=== PATIENT | female | born 1985 | race Hispanic/Latino ===

== ENCOUNTER 2021-01-22 20:44 | Inpatient (IN) | payer OTHER, MEDICARE ==
[~2021-01-22] VITALS: Ht 157.5 cm; Wt 91.9 kg
[2021-01-22] MEDS ORDERED: 0.9%NACL 1000ML 1,000 ML IV ONE ×2 (21:30→23:00)
[2021-01-22] MEDS ORDERED: LEVETIRACETAM 1,500 MG in 0.9%NACL 100ML 100 ML IV ONE (22:00)
[2021-01-22] MEDS ORDERED: ONDANSETRON 4MG INJ IVP ONE (22:00)
[2021-01-22] MEDS ORDERED: COMPOUND IV MISC 1 EACH IVSOLN MISC PRN (22:00)
[2021-01-22 22:07] LABS: BASOPHILS % (AUTO) 0.2 % (0.0-5.0); EOSINOPHILS % (AUTO) 0.3 % (0.0-8.0); HEMATOCRIT 50.9 % (36-48); LYMPHOCYTES % (AUTO) 15.8 % (21.0-51.0); MEAN CORPUSCULAR HEMOGLOBIN 28.3 pg (27.0-33.0); MEAN CORPUSCULAR HGB CONC 33.6 g/dL (32.0-36.0); MEAN CORPUSCULAR VOLUME 84.3 fL (79-99); MONOCYTES % (AUTO) 6.8 % (3.0-13.0); NEUTROPHILS % (AUTO) 76.4 % (40.0-77.0); PLATELET COUNT (AUTO) 333 K/uL (130-400); RED BLOOD CELL COUNT(AUTO) 6.04 MIL/uL (4.00-5.50); RED CELL DISTRIBUTION WIDTH 13.1 % (11.0-15.5)
[2021-01-22 22:19] LABS: CREATININE 0.6 mg/dL (0.5-1.5); POTASSIUM 3.9 mmol/L (3.5-5.1)
[2021-01-22] MEDS ORDERED: ZOSYN 3.375GM +NS 50ML IV ONE (22:30)
[2021-01-22 22:35] LABS: ALBUMIN 3.7 g/dL (3.5-5.0); BILIRUBIN,TOTAL 0.5 mg/dL (0.2-1.0); MAGNESIUM 2.5 mg/dL (1.80-2.40); TOTAL PROTEIN, SERUM 8.1 g/dL (6.0-8.3)
[2021-01-22 22:44] LABS: APPEARANCE,URINE Turbid (CLEAR); BILIRUBIN,URINE Negative (NEGATIVE); COLOR,URINE Yellow (YELLOW); GLUCOSE, URINE (UA) >=1000 mg/dL (NEGATIVE); KETONES,URINE 15 mg/dL (NEGATIVE); LEUKOCYTE ESTERASE ,URINE Moderate (NEGATIVE); NITRATE,URINE Negative (NEGATIVE); OCCULT BLOOD,URINE Moderate (NEGATIVE); PROTEIN,URINE POS 1+ mg/dL (NEGATIVE)
[2021-01-22 22:52] LABS: AMPHET/METH SCREEN,URINE NEGATIVE (NEGATIVE); BARBITURATE SCREEN, URINE NEGATIVE (NEGATIVE); BENZODIAZEPINES SCREEN,URINE NEGATIVE (NEGATIVE); CANNABINOID SCREEN,URINE NEGATIVE (NEGATIVE); COCAINE SCREEN,URINE NEGATIVE (NEGATIVE); OPIATE SCREEN,URINE NEGATIVE (NEGATIVE); PHENCYCLIDINE SCREEN,URINE NEGATIVE (NEGATIVE)
[2021-01-22 22:57] LABS: WBC,URINE TNTC /HPF (0-1)
[2021-01-22 22:58] LABS: BACTERIA,URINE Few /HPF (None Seen); SQUAMOUS EPITHELIAL CELL,UR 0-2 /HPF (0-2); YEAST,URINE BUDDING Moderate /HPF (None Seen)
[2021-01-22] MEDS ORDERED: KETOROLAC 30MG VIAL (30MG/ML) IV ONE (23:00)
[2021-01-22] MEDS ORDERED: METOCLOPRAMIDE 10 MG/2 ML VIAL IVP ONE (23:00)
[2021-01-22] MEDS ORDERED: DiphenhydrAMINE HCL 50 MG/ML VIAL IV ONE (23:00)
[2021-01-22 23:10] LABS: ABG BASE EXCESS 0.6 mmol/L (-2.0-3.0); ABG HCO3 23.5 mmol/L (21.0-28.0); ABG OXYGEN SATURATION 96.6 % (95.0-99.0); ABG PCO2 33 mmHg (32-45)
[2021-01-22] MEDS ORDERED: ATOR10 PO (23:29)
[2021-01-22] MEDS ORDERED: METO25TA6 PO (23:29)
[2021-01-22] MEDS ORDERED: NAPR-1023 PO (23:40)
[2021-01-22] MEDS ORDERED: MULT-1193 PO (23:40)
[2021-01-22] MEDS ORDERED: LEVE500T98 PO (23:40)
[2021-01-22] MEDS ORDERED: BACL10TA PO (23:40)
[2021-01-23] VITALS (22 sets, daily range): BP systolic 118–157; BP diastolic 74–101
[2021-01-23] MEDS ORDERED: CEFTRIAXONE 1G VIAL IV SCH (01:30)
[2021-01-23] MEDS ORDERED: ONDANSETRON 4MG INJ IV PRN (01:30)
[2021-01-23] MEDS: LACTATED RINGERS 1000ML 1,000 ML IV SCH ×3 (01:31→21:30)
[2021-01-23] MEDS ORDERED: MORPHINE 2 MG SYG ONE (03:26)
[2021-01-23] MEDS ORDERED: MORPHINE 2 MG SYG IM ONE (04:00)
[2021-01-23 05:44] LABS: CREATININE 0.6 mg/dL (0.5-1.5); MAGNESIUM 2.3 mg/dL (1.80-2.40); PHOSPHORUS 3.6 mg/dL (2.5-4.9)
[2021-01-23 05:49] LABS: HEMOGLOBIN A1C 7.3 % (4.0-6.0)
[2021-01-23] MEDS ORDERED: DEXAMETHASONE SOD PHOSPHATE 10MG/ML 1ML VIAL ONE ×2 (07:14→14:42)
[2021-01-23] MEDS ORDERED: SUCCINYLCHOLINE CHLORIDE 20 MG/ML 10 ML VIAL ONE (07:14)
[2021-01-23] MEDS ORDERED: LIDOCAINE PF 100MG/5ML (2%) SYRINGE 5ML ONE ×2 (07:14→14:42)
[2021-01-23] MEDS ORDERED: ONDANSETRON 4MG INJ ONE ×2 (07:14→14:43)
[2021-01-23] MEDS ORDERED: NEOSTIGMINE 5MG/5ML SYR IV ONE ×2 (07:15→14:43)
[2021-01-23] MEDS ORDERED: PROPOFOL 10 MG/ML 20ML VIAL IV ONE ×2 (07:15→14:43)
[2021-01-23] MEDS ORDERED: FENTANYL CITRATE PF 50 MCG/1 ML 2ML VIAL ONE (07:15)
[2021-01-23] MEDS ORDERED: GLYCOPYRROLATE 1 MG/5 ML SYRINGE ONE ×2 (07:15→14:43)
[2021-01-23] MEDS ORDERED: MIDAZOLAM HCL 1 MG/ML 2ML VIAL ONE ×2 (07:16→14:43)
[2021-01-23] MEDS ORDERED: ROCURONIUM 10MG/1ML SYR 10 MG/ML ML ONE ×2 (07:16→14:43)
[2021-01-23] MEDS: CEFTRIAXONE 2GM VIAL IVP SCH ×2 (09:16→21:03)
[2021-01-23] MEDS: FAMOTIDINE 20MG VIAL IV SCH ×2 (09:16→21:04)
[2021-01-23 09:19] LABS: APPEARANCE,CSF CLEAR (CLEAR); COLOR,CSF COLORLESS (COLORLESS); CSF TUBE NUMBER 1
[2021-01-23 09:20] LABS: RED BLOOD CELL1,CSF 10 CMM (0-0); WHITE BLOOD CELL1,CSF 0 CMM (0-5)
[2021-01-23 09:37] LABS: GLUCOSE, CSF 127 mg/dL (40-70); TOTAL PROTEIN, CSF 31 mg/dL (15-45)
[2021-01-23] MEDS ORDERED: 0.9%NACL 1000ML 1,000 ML IV ONE (13:20)
[2021-01-23] MEDS ORDERED: SUCCINYLCHOLINE 200MG/10ML SYR ONE (14:42)
[2021-01-23] MEDS ORDERED: FENTANYL CITRATE PF 50 MCG/1 ML 5ML AMP IV ONE (14:43)
[2021-01-23] MEDS ORDERED: MEPERIDINE-PF 25 MG/ML SYG ONE (14:44)
[2021-01-23] MEDS: CEFTRIAXONE 1G VIAL ONE ×2 (15:40→15:45)
[2021-01-23] MEDS ORDERED: MORPHINE 4 MG SYG IM PRN (17:30)
[2021-01-23] MEDS ORDERED: TRAMADOL HCL 50 MG TABLET PO PRN (17:30)
[2021-01-24 04:04] VITALS: BP 125/72
[2021-01-24 04:25] LABS: BASOPHILS % (AUTO) 0.1 % (0.0-5.0); HEMATOCRIT 44.5 % (36-48); LYMPHOCYTES % (AUTO) 12.2 % (21.0-51.0); MEAN CORPUSCULAR HEMOGLOBIN 28.3 pg (27.0-33.0); MEAN CORPUSCULAR HGB CONC 33.5 g/dL (32.0-36.0); MEAN CORPUSCULAR VOLUME 84.4 fL (79-99); MONOCYTES % (AUTO) 3.6 % (3.0-13.0); NEUTROPHILS % (AUTO) 83.5 % (40.0-77.0); PLATELET COUNT (AUTO) 311 K/uL (130-400); RED BLOOD CELL COUNT(AUTO) 5.27 MIL/uL (4.00-5.50); RED CELL DISTRIBUTION WIDTH 13.1 % (11.0-15.5)
[2021-01-24 04:40] LABS: INR 1.09 (0.85-1.15); PROTHROMBIN TIME 11.8 SEC (9.6-11.6)
[2021-01-24 04:41] LABS: PARTIAL THROMBOPLASTIN TIME 25.4 SEC (26.3-35.5)
[2021-01-24 07:30] VITALS: BP 129/75
[2021-01-24] MEDS: LACTATED RINGERS 1000ML 1,000 ML IV SCH ×2 (07:30→17:30)
[2021-01-24] MEDS: MULTIVITAMINS/MINERALS/IRO TAB PO SCH (08:58)
[2021-01-24] MEDS: CEFTRIAXONE 2GM VIAL IVP SCH ×2 (08:59→20:14)
[2021-01-24] MEDS: METOPROLOL TARTRATE 25 MG TAB PO SCH ×2 (08:59→20:14)
[2021-01-24] MEDS: LEVETIRACETAM 500 MG TABLET PO SCH ×2 (08:59→20:14)
[2021-01-24] MEDS: FAMOTIDINE 20MG VIAL IV SCH ×2 (08:59→20:14)
[2021-01-24 11:00] VITALS: BP 115/74
[2021-01-24 16:00] VITALS: BP 123/77
[2021-01-24 19:56] VITALS: BP 122/95
[2021-01-24] MEDS: ATORVASTATIN 10 MG TABLET PO SCH (20:14)
[2021-01-24 23:31] VITALS: BP 115/82
[2021-01-25] MEDS: LACTATED RINGERS 1000ML 1,000 ML IV SCH ×2 (03:30→13:30)
[2021-01-25 04:00] VITALS: BP 124/74
[2021-01-25 04:05] LABS: BASOPHILS % (AUTO) 0.3 % (0.0-5.0); EOSINOPHILS % (AUTO) 0.8 % (0.0-8.0); HEMATOCRIT 46.3 % (36-48); MEAN CORPUSCULAR HEMOGLOBIN 27.9 pg (27.0-33.0); MEAN CORPUSCULAR HGB CONC 32.6 g/dL (32.0-36.0); MEAN CORPUSCULAR VOLUME 85.4 fL (79-99); MONOCYTES % (AUTO) 8.7 % (3.0-13.0); NEUTROPHILS % (AUTO) 58.8 % (40.0-77.0); PLATELET COUNT (AUTO) 272 K/uL (130-400); RED BLOOD CELL COUNT(AUTO) 5.42 MIL/uL (4.00-5.50); RED CELL DISTRIBUTION WIDTH 13.3 % (11.0-15.5); WHITE BLOOD COUNT (AUTO) 12.5 K/uL (4.8-10.8)
[2021-01-25 04:25] LABS: CREATININE 0.5 mg/dL (0.5-1.5); CRP QUANTITATIVE 27.1 mg/L (0.00-9.0); POTASSIUM 3.3 mmol/L (3.5-5.1)
[2021-01-25 05:12] LABS: ERYTHROCYTE SEDIMENTATION RATE 34 MM/HR (0-20)
[2021-01-25 07:30] VITALS: BP 123/86
[2021-01-25] MEDS: MULTIVITAMINS/MINERALS/IRO TAB PO SCH (09:00)
[2021-01-25] MEDS ORDERED: KCL 20 MEQ ERTAB PO SCH (09:00)
[2021-01-25] MEDS: METOPROLOL TARTRATE 25 MG TAB PO SCH ×2 (09:13→19:51)
[2021-01-25] MEDS: LEVETIRACETAM 500 MG TABLET PO SCH ×2 (09:13→19:50)
[2021-01-25] MEDS: FAMOTIDINE 20MG VIAL IV SCH ×2 (09:14→19:52)
[2021-01-25] MEDS: CEFTRIAXONE 2GM VIAL IVP SCH ×2 (09:14→19:51)
[2021-01-25 11:00] VITALS: BP 136/63
[2021-01-25] MEDS ORDERED: FLUCONAZOLE 100 MG TAB PO SCH (15:00)
[2021-01-25 15:30] VITALS: BP 116/78
[2021-01-25 19:43] VITALS: BP 121/91
[2021-01-25] MEDS ORDERED: LABETALOL 20MG SYG IV ONE (19:48)
[2021-01-25 19:51] VITALS: BP 132/94
[2021-01-25] MEDS: ATORVASTATIN 10 MG TABLET PO SCH (19:51)
[2021-01-25] MEDS ORDERED: LABETALOL 20MG SYG IV SCH (20:00)
[2021-01-25] MEDS ORDERED: LABETALOL 20MG VIAL IV ONE (20:00)
== END 2021-01-25 20:40 | DRG 32 ==
LOC: EDH 20:44 → EDHIP 01-23 01:01 → 4BH 01-23 02:40
PROVIDERS: ADMIT Internal Medicine; ATTEND Internal Medicine
PROC: 0W9G4ZZ Drainage of Peritoneal Cavity, Percutaneous Endoscopic Approach (ICD-10-PCS; 2021-01-23)
PROC: 0WWG4JZ Revision of Synthetic Substitute in Peritoneal Cavity, Percutaneous Endoscopic Approach (ICD-10-PCS; principal; 2021-01-23 15:18)
DX: T85.01XA Breakdown (mechanical) of ventricular intracranial (communicating) shunt, initial encounter (principal); S73.004A Unspecified dislocation of right hip, initial encounter; S73.005A Unspecified dislocation of left hip, initial encounter; N39.0 Urinary tract infection, site not specified; Q05.2 Lumbar spina bifida with hydrocephalus; R18.8 Other ascites; Y75.2 Prosthetic and other implants, materials and neurological devices associated with adverse incidents; L89.152 Pressure ulcer of sacral region, stage 2; Z20.822 Contact with and (suspected) exposure to COVID-19; E11.9 Type 2 diabetes mellitus without complications; I10 Essential (primary) hypertension; E66.01 Morbid (severe) obesity due to excess calories; M95.5 Acquired deformity of pelvis; M43.6 Torticollis; Z68.37 Body mass index [BMI] 37.0-37.9, adult; G40.909 Epilepsy, unspecified, not intractable, without status epilepticus; R53.81 Other malaise; Y93.89 Activity, other specified; Y92.89 Other specified places as the place of occurrence of the external cause; Y99.8 Other external cause status; Z83.3 Family history of diabetes mellitus; Z80.0 Family history of malignant neoplasm of digestive organs
CPT/HCPCS: 36415; 36600; 70250; 70450; 71045; 71250; 72125; 74018; 74176; 80048; 80053; 80305; 81001; 81025; 82140; 82803; 82945; 83036; 83605; 83690; 83735; 84100; 84145; 84157; 84443; 85025; 85610; 85651; 85730; 86140; 86850; 86900; 86901; 87040; 87070; 87071; 87076; 87077; 87088; 87186; 87205; 87635; 87804; 89051; 93005; 97039; A4606; C9803; G0378; J0330; J0696; J1100; J1200; J1885; J1953; J2001; J2175; J2250; J2405; J2543; J2704; J2710; J2765; J3010; J3490; J7030; J7120